=== PATIENT | male | born 1960 | race Caucasian/White ===

== ENCOUNTER 2016-08-20 00:44 | Emergency (ER) | payer OTHER ==
[2016-08-20 01:56] LABS: URINE SOURCE VOIDED
[2016-08-20 02:08] LABS: BILIRUBIN URINE NEGATIVE (NEGATIVE); BLOOD URINE 3+ (NEGATIVE); CLARITY SL. CLOUDY (CLEAR); COLOR YELLOW; GLUCOSE URINE NEGATIVE (NEGATIVE); LEUKOCYTES URINE 2+ (NEGATIVE); NITRITE URINE NEGATIVE (NEGATIVE); PROTEIN URINE TRACE mg/dL (NEGATIVE); UROBILINOGEN URINE NORMAL
[2016-08-20 02:30] LABS: URINE CULTURE PL NEEDED? YES; URINE EPITHELIAL CELLS <10 /HPF (<10); URINE RBC TNTC /HPF (<10); URINE WBC TNTC /HPF (<10)
[2016-08-20] MEDS ORDERED: LEVAQUIN PO ONE (02:45)
[2016-08-20] MEDS ORDERED: TORADOL IM ONE (02:45)
--- NOTE | 2016-08-20 02:52 | PROVIDER DOCUMENTATION ---
HPI-General Adult - General Chief Complaint: Flu Symptoms Stated Complaint: HEADACHE, ABD PAIN,URINATION ISSUES Time Seen by Provider: 08/20/16 02:22 Source: patient Allergies/Adverse Reactions: Patient Allergies Allergy/AdvReac Type Severity Reaction Status Date / Time No Known Allergies Allergy Verified 01/24/16 17:25 Home Medications: Hydrochlorothiazide 25 mg PO DAILY 11/20/13 Lisinopril [Zestril] 20 mg PO DAILY 11/20/13 Loratadine [Claritin] 10 mg PO DAILY 11/20/13 Naproxen [EC-Naprosyn] 500 mg PO BID 11/20/13 Omeprazole 20 mg PO DAILY 11/20/13 Vit D3-Vit K/Berberine/Hops [Ostera Tablet] 1 each PO DAILY 11/20/13 Elviteg/Sonia/Emtric/Tenofo Dis [Stribild Tablet] 1 each PO DAILY 12/22/14 - History of Present Illness -Gen Adult Nature of Presenting Problems: 56 YOM PRESENTS TO ED WITH C/O COUGH, NAUSEA, SORE THROAT, FEVER, X 4 DAYS. PT STATES HE HAS THE URGE TO URINATE BUT VERY LITTLE COMES OUT. Location of Pain/Injury: reports: generalized Pain Radiation: reports: no radiation Quality of Pain: reports: aching Severity: reports: mild Onset/Duration: reports: 4 days ago Timing: reports: still present Context/Activities at Onset: reports: light activity Modifying Factors: improves with: nothing Associated Symptoms: reports: cough, sinus congestion/drainage Similar Symptoms Previously?: No Recently seen or treated by another doctor?: No Review of Systems - Adult - REVIEW OF SYSTEMS - ADULT Constitutional: denies: chills, fever Eyes: reports: no symptoms reported Ears, Nose, Mouth & Throat: reports: no symptoms reported Cardiovascular: denies: chest pain, palpitations, syncope Respiratory: reports: cough. denies: shortness of breath, wheezing Gastrointestinal: reports: nausea. denies: abdominal pain, diarrhea, vomiting Genitourinary: reports: urinary retention, urgency Musculoskeletal: denies: back pain, neck pain Integumentary: reports: no symptoms reported Neurological: denies: dizziness/vertigo, headache/migraines, syncope Psychiatric: reports: no symptoms reported Endocrine: reports: no symptoms reported Hematologic/Lymphatic: reports: no symptoms reported Allergic/Immunologic: reports: no symptoms reported All Other Systems: Reviewed and Negative Past History - Adult - PAST MEDICAL HISTORY-ADULT Review of Records: reports: Nursing Assessment Review, Medications Reviewed Cardiovascular: reports: HTN, hyperlipidemia Musculoskeletal: reports: denies history Endocrine/Immune: reports: HIV/AIDS, thyroid disorder - PRIOR SURGERIES/PROCEDURES Surgical/Procedure History: reports: cholecystectomy, hernia repair - IMMUNIZATION STATUS Childhood Immunizations: See Nurse Assessment Flu Vaccine: See Nurse Assessment - FAMILY HISTORY Family History: reviewed, not pertinent - SOCIAL HISTORY Smoking: denies Substance Use: denies Alcohol Use Frequency: never Living Situation: family Physical Exam-General - CONSTITUTIONAL General Appearance: alert - EYES Eyes: PERRL/EOMI, pink conjunctivae - HEAD, EARS, NOSE, MOUTH & THROAT HENMT: normocephalic/atraumatic, moist mucous membranes - NECK Neck: non-tender, full range of motion, supple - RESPIRATORY Respiratory: chest non-tender, lungs clear, normal breath sounds - CARDIOVASCULAR Cardiovascular: normal peripheral pulses, regular rate, rhythm - GASTROINTESTINAL (ABDOMEN) Abdominal Exam: normal bowel sounds, non tender, soft - LYMPHATIC Lymphatic: no adenopathy - MUSCULOSKELETAL Back Exam: normal inspection, no CVA tenderness, no vertebral tenderness Extremity: normal range of motion, non-tender - SKIN Integumentary: normal color, normal turgor, warm/dry - NEUROLOGIC Neurologic: grossly normal - PSYCHIATRIC Psych/Mental Status: oriented x 3 Departure - Departure Time of Disposition Order: 02:48 DIAGNOSIS: Pyelonephritis Disposition: HOME 01 Certified Medical Emergency: Emergent Condition: Stable Additional Instructions: ED Follow Up Instructions: You have been treated by a care provider in the Emergency Department. These instructions are being provided to you so you can have an understanding of how to care for yourself upon discharge. Upon discharge from the Emergency Department, you are responsible for making arrangements for follow-up care by a physician of your choice. Take all prescribed medications as directed. Return to the Emergency Department immediately for any new or worsening symptoms. You may call the Physician Referral phone number at [phone] to obtain a list of Physicians who are taking new patients. Prescriptions: Levofloxacin [Levaquin] 750 mg PO DAILY #7 tablet Attestation - Scribe Verification/Attestation Scribe:: Phil Vogel Acting as Scribe for:: Darwin Rojas Scribe documention review:: This chart was documented by a scribe and accurately reflects the service the provider performed and the decisions made by the provider.
[2016-08-20 02:55] VITALS: BP 112/70
== END 2016-08-20 03:07 | disposition home or self-care (01) ==
LOC: P.ED 00:44
DX: N12 Tubulo-interstitial nephritis, not specified as acute or chronic (principal); R05 Cough; R11.0 Nausea; J02.9 Acute pharyngitis, unspecified; R50.9 Fever, unspecified; R51 Headache; R10.9 Unspecified abdominal pain; R09.81 Nasal congestion; R33.9 Retention of urine, unspecified; R39.15 Urgency of urination; I11.0 Hypertensive heart disease with heart failure; E78.5 Hyperlipidemia, unspecified; Z79.899 Other long term (current) drug therapy; Z21 Asymptomatic human immunodeficiency virus [HIV] infection status
CPT/HCPCS: 81001; 87077; 87081; 87088; 87186; 87430; 87804; 96372; J1885